=== PATIENT | male | born 1935 | race Caucasian/White ===

== ENCOUNTER 2017-09-13 13:49 | Emergency (ER) | payer MEDICARE, BC ==
[2011-06-19 08:27] VITALS: BMI 28.7
== END 2017-09-13 17:53 | disposition home or self-care (01) ==
LOC: D.ER 13:49
DX: S09.90XA Unspecified injury of head, initial encounter (principal); W01.0XXA Fall on same level from slipping, tripping and stumbling without subsequent striking against object, initial encounter; Y93.89 Activity, other specified; Y92.029 Unspecified place in mobile home as the place of occurrence of the external cause; S01.81XA Laceration without foreign body of other part of head, initial encounter; S51.001A Unspecified open wound of right elbow, initial encounter; I48.91 Unspecified atrial fibrillation

== ENCOUNTER → 2019-11-19 12:45 | Outpatient (CLI) | payer MEDICARE, BC ==
[2011-06-19 08:27] VITALS: BMI 28.7
== END | disposition home or self-care (01) ==
LOC: D.HCCECHO 12:45
PROVIDERS: ATTEND Internal Medicine Cardiovascular Disease
DX: I35.0 Nonrheumatic aortic (valve) stenosis (principal)